=== PATIENT | male | born 1965 | race American Indian/Alaskan Native ===

== ENCOUNTER 2018-03-26 14:36 | Inpatient (IN) | payer MEDICAID ==
[2018-03-26 15:43] LABS: BASO # 0.1 K/uL (0.0-0.2); BASO % 0.7 % (0.0-2.0); EOS # 0.4 K/uL (0.0-0.7); EOS % 3.7 % (0.0-4.0); HEMOGLOBIN 14.7 g/dL (12.0-18.0); LYMPH # 2.9 K/uL (1.0-4.3); LYMPH % 28.8 % (20.0-40.0); MEAN CELL VOLUME 94.8 fL (80.0-94.0); MEAN CORPUSCULAR HEMOGLOBIN 31.9 pg (27.0-31.0); MEAN CORPUSCULAR HGB CONC 33.7 g/dL (33.0-37.0); MEAN PLATELET VOLUME 9.3 fL (7.2-11.7); MONO # 0.6 K/uL (0.0-0.8); MONO % 6.5 % (0.0-10.0); NEUT % 60.3 % (50.0-75.0); RBC 4.61 Mil/uL (4.40-5.90); RED CELL DISTRIBUTION WIDTH 14.4 % (11.5-14.5)
[2018-03-26 15:50] LABS: SQUAMOUS EPITHIAL 1 /hpf (0-5); URINE BILIRUBIN NEGATIVE (NEGATIVE); URINE BLOOD NEGATIVE (NEGATIVE); URINE CLARITY Hazy (Clear); URINE COLOR Amber (YELLOW); URINE GLUCOSE (UA) NORMAL (Normal); URINE LEUKOCYTE ESTERASE NEG Leu/uL (Negative); URINE PROTEIN 1+ mg/dL (NEGATIVE)
[2018-03-26 16:02] LABS: ALB/GLOB RATIO 1.5 (1.0-2.1); ALBUMIN 4.3 g/dL (3.5-5.0); ALT/SGPT 9 U/L (21-72); AST/SGOT 24 U/L (17-59); BLOOD UREA NITROGEN 16 mg/dL (9-20); CALCIUM 9.4 mg/dl (8.6-10.4); GFR NON-AFRICAN AMERICAN > 60
[2018-03-26 16:17] LABS: BARBITURATES, UR NEGATIVE (NEGATIVE); PHENCYCLIDINE, UR NEGATIVE (NEGATIVE)
[2018-03-26 16:25] LABS: BENZODIAZEPINES, UR POSITIVE (NEGATIVE); OPIATES, UR POSITIVE (NEGATIVE)
--- NOTE | 2018-03-26 17:09 | C.PDOC ---
History Of Present Illness 52yo male, with history of polysubstance abuse, comes to ER requesting detox from heroin and xanax. Patient states he uses approximately 10-14 bags of heroin daily and occasionally uses 1-2mg of Xanax. He reports last use was earlier today. Otherwise, patient has no medical complaints. Time Seen by Provider: 03/26/18 14:42 Chief Complaint (Nursing): Substance Abuse History Per: Patient History/Exam Limitations: no limitations Onset/Duration Of Symptoms: Persistent Current Symptoms Are (Timing): Still Present Modifying Factor(s): Narcotics Associated Symptoms: denies: Suicidal Thoughts, Suicidal Plan Additional History Per: Patient Past Medical History Reviewed: Historical Data, Nursing Documentation, Vital Signs Vital Signs: Last Vital Signs Temp 98.4 F 03/26/18 14:39 Pulse 92 H 03/26/18 14:39 Resp 18 03/26/18 14:39 BP 132/84 03/26/18 14:39 Pulse Ox 98 03/26/18 14:39 LUISITO Report Viewed: Yes - Medical History PMH: No Chronic Diseases Surgical History: No Surg Hx Family History: States: No Known Family Hx - Social History Hx Alcohol Use: No Hx Substance Use: Yes - Immunization History Hx Tetanus Toxoid Vaccination: No Hx Influenza Vaccination: No Hx Pneumococcal Vaccination: No Review Of Systems Except As Marked, All Systems Reviewed And Found Negative. Constitutional: Negative for: Fever, Chills Cardiovascular: Negative for: Chest Pain Respiratory: Negative for: Shortness of Breath Gastrointestinal: Negative for: Vomiting, Abdominal Pain Neurological: Negative for: Weakness, Numbness Physical Exam - Physical Exam Appears: Non-toxic Skin: Normal Color Head: Normacephalic Eye(s): bilateral: Normal Inspection Neck: Normal ROM, Supple Chest: Symmetrical Cardiovascular: Rhythm Regular Respiratory: Normal Breath Sounds Gastrointestinal/Abdominal: Normal Exam, Soft Back: Normal Inspection Extremity: Normal ROM, No Pedal Edema Neurological/Psych: Oriented x3 ED Course And Treatment - Laboratory Results Result Diagrams: 03/26/18 15:37 03/26/18 15:37 Lab Results: Total Bilirubin 0.3 mg/dL (0.2-1.3) 03/26/18 15:37 AST 24 U/L (17-59) 03/26/18 15:37 ALT 9 U/L (21-72) L 03/26/18 15:37 Alkaline Phosphatase 74 U/L (38-126) 03/26/18 15:37 Total Protein 7.2 g/dL (6.3-8.3) 03/26/18 15:37 Albumin 4.3 g/dL (3.5-5.0) 03/26/18 15:37 Globulin 2.9 gm/dL (2.2-3.9) 03/26/18 15:37 Albumin/Globulin Ratio 1.5 (1.0-2.1) 03/26/18 15:37 Urine Color Alda (YELLOW) 03/26/18 15:37 Urine Clarity Hazy (Clear) 03/26/18 15:37 Urine pH 5.0 (5.0-8.0) 03/26/18 15:37 Ur Specific [place] 1.029 (1.003-1.030) 03/26/18 15:37 Urine Protein 1+ mg/dL (NEGATIVE) H 03/26/18 15:37 Urine Glucose (UA) Normal mg/dL (Normal) 03/26/18 15:37 Urine Ketones Negative mg/dL (NEGATIVE) 03/26/18 15:37 Urine Blood Negative (NEGATIVE) 03/26/18 15:37 Urine Nitrate Negative (NEGATIVE) 03/26/18 15:37 Urine Bilirubin Negative (NEGATIVE) 03/26/18 15:37 Urine Urobilinogen 2.0 mg/dL (0.2-1.0) 03/26/18 15:37 Ur Leukocyte Esterase Neg [place]/uL (Negative) 03/26/18 15:37 Urine WBC (Auto) 2 /hpf (0-5) 03/26/18 15:37 Urine RBC (Auto) 2 /hpf (0-3) 03/26/18 15:37 Ur Squamous Epith Cells 1 /hpf (0-5) 03/26/18 15:37 O2 Sat by Pulse Oximetry: 98 (RA) Pulse Ox Interpretation: Normal Medical Decision Making Medical Decision Makinyo male with history of heroin abuse comes for detox Plan: -- Labs -- Urinalysis 1630 Patient medically cleared 1712 Patient admitted to detox by Dr. Mike for opoid abuse disorder Disposition - Disposition Disposition: HOSPITALIZED Disposition Time: 16:10 Condition: STABLE - Clinical Impression Clinical Impression: Drug dependence - Scribe Statement The provider has reviewed the documentation as recorded by the Scribe Suzie Radha Provider Attestation: All medical record entries made by the Lyndsey were at my direction and personally dictated by me. I have reviewed the chart and agree that the record accurately reflects my personal performance of the history, physical exam, medical decision making, and the department course for this patient. I have also personally directed, reviewed, and agree with the discharge instructions and disposition.
--- NOTE | 2018-03-26 17:57 | PCM.BM ---
<Loren Hall - Last Filed: 03/26/18 17:56> Treatment Plan Problems - Problems identified on initial assessmt Defensive Coping Date Initiated: 03/26/18 Time Initiated: 17:56 Assessment reference: NA Status: Active Denial Date Initiated: 03/26/18 Time Initiated: 17:56 Assessment reference: NA Status: Active Chronic Low Self Esteem Date Initiated: 03/26/18 Time Initiated: 17:56 Assessment reference: NA Status: Active Treatment assets and liabiliti Patient Assests: ADL independent, negotiates basic needs, cognitively intact Patient Liabilities: substance abuse (Opiates, Benzo) - Milieu Protocol Maintain good personal hygiene: daily Encourage regular showers, daily Remind patient to perform daily oral care, daily Assist patient to perform ADL's Conduct patient checks and document Observation sheet: Q15 minutes Maintain personal safety: every shift Educate patient to report safety concerns to staff, every shift Monitor environment for contraband/sharps Medication safety: Monitor for expected outcome, potential side effects: every shift, Assess barriers to learning: every shift, Assess readiness for medication education: every shift <Rhonda Lanier - Last Filed: 03/29/18 13:41> - Diagnosis (1) Opioid use disorder, severe, dependence Status: Acute Interventions: 03/29/18 13:41 * Assess 7x/week regarding severity of withdrawal * Educate regarding risks, benefits, side effects and alternatives of medications * Use Motivational Interviewing for abstinence * Use CBT for relapse prevention * Medication management for withdrawal symptoms * Encourage medication assisted treatment *
[2018-03-26] MEDS ORDERED: HYDROPHOR TOP PRN (18:48)
[2018-03-26] MEDS ORDERED: Aluminum Hydroxide/Magnesium Hydroxide Susp (30 mL) PO PRN (23:55)
[2018-03-27] MEDS: Albuterol HFA 90 mcg/actuation (8 g) INH PRN (13:18)
--- NOTE | 2018-03-27 19:06 | PCM.PSYCH ---
Initial Psychiatric Evaluation - Initial Psychiatric Evaluation Type of Admission: Voluntary Legal Status: Capacity Chief Complaint (in patient's own words): I am here for my heroin and benzos use. History of Present Illness and Precipitating Events: Patient is a 52 years old, single, unemployed, -Indian male with no previous psychiatric history was admitted due to withdrawing from heroine and Anxiolytic use. Opioids: He started using heroin at 11 years of age, increased gradually up to 25 bags of heroine daily, sniffing. Last used yesterday, 12 bags. Longest period of abstinence was 2-1/2 years from [id number]. Patient has history of 2 previous detox and for rehabs. Anxiolytics: Patient started using Xanax in 1993. He was using 4-5 sticks of Xanax daily. Last used yesterday more than 2 sticks. Denied use of any other drugs including cocaine and cannabis. He smokes 1 pack of cigarettes daily, refusing nicotine patch. Patient has history of left tibial surgery. He was arrested for drug charges and was incarcerated from [id number]. He is not on probation. Patient was born in [place] and has ninth grade of education. Patient is not working for last 3 years and is supported by family. He was never and has no children. Current Medications: Active Medications Generic Name Dose Route Start Last Admin Trade Name Freq PRN Reason Stop Dose Admin Al Hydrox/Mg Hydrox/Simethicone 30 ml 03/26/18 23:55 Maalox 30 Ml PO TID PRN Indigestion / Heartburn Albuterol 1 puff 03/26/18 18:47 03/27/18 13:18 Ventolin Hfa 90 Mcg/Actuation (8 G) INH 1 puff RQ6 PRN Administration Shortness of Breath Clonidine HCl 0.1 mg 03/26/18 23:54 Catapres PO Q4 PRN COWS Score More or Equal to 5 Dicyclomine HCl 10 mg 03/26/18 23:55 Bentyl PO Q6 PRN Muscle spasm Gabapentin 300 mg 03/27/18 10:00 03/27/18 17:16 Neurontin PO Not Given TID [facility] Home Med 0 gm 03/26/18 19:15 03/26/18 19:08 Patient's Own Topical TOP 1 gm BID PRN Administration Dry skin Hydroxyzine HCl 25 mg 03/26/18 18:26 03/26/18 21:03 Atarax PO 25 mg Q6 PRN Administration Anxiety Ibuprofen 600 mg 03/26/18 23:55 Motrin Tab PO Q6 PRN Pain, moderate (4-7) Loperamide HCl 2 mg 03/26/18 23:55 Imodium PO Q8 PRN Diarrhea Methadone HCl 15 mg 03/27/18 10:00 03/27/18 09:40 Methadone PO 03/30/18 09:59 15 mg Q24H [place] Administration Taper Ondansetron HCl 4 mg 03/26/18 23:55 Zofran Tab PO Q8 PRN Nausea/Vomiting Trazodone HCl 50 mg 03/26/18 18:26 03/26/18 21:03 Desyrel PO 50 mg HS PRN Administration Insomnia Past Psychiatric History - Past Psychiatric History Previous Treatment History: Inpatient Nature of Treatment: 2 previous detox and to rehabs History of Abuse: None reported History of ETOH/Drug Use: See HPI History of Family Illness: Reported drug use runs in the family. Pertinent Medical Hx (Current Medical&Sleep Prob, Allergies): Allergies Allergy/AdvReac Type Severity Reaction Status Date / Time No Known Allergies Allergy Verified 03/26/18 14:42 Albuterol HFA [Ventolin HFA 90 mcg/actuation (8 g)] 1 puff IH Q6 PRN 03/26/18 Ointment Base [Hydrophor Oint] 1 TOP BID PRN 03/26/18 Asthma Review of Systems - Psychiatric Psychiatric: As Per HPI, Anxiety Mental Status Examination - Personal Presentation Personal Presentation: Looks stated age - Affect Affect: Other (Appropriate) - Motor Activity Motor Activity: Calm - Reliability in Providing Information Reliability in Providing Information: Good - Speech Speech: Organized - Mood Mood: Anxious - Formal Thought Process Formal Thought Process: No Impairment - Hallucinations/Delusions Hallucinations: Other (None reported) Delusions: Other - Obsessions/Compulsions Obsessions: None Compulsions: None - Cognitive Functions Orientation: Person, Place, Situation, Time Sensorium: Alert Attention/Concentration: Attentive Abstract Thinking: [place] Estimate of Intelligence: Average Judgement: Intact, as evidence by: Insight regarding need for hospitalization Memory: Recent intact, as evidence by: Ability to recall events of the day, Remote intact, as evidenced by: Ability to recall historical events - Risk Risk: Withdrawal, Diminished functioning - Strength & Assets Inventory Strength & Assets Inventory: Family support, Cooperative - Limitations Limitations: Living alone DSM 5 DX - DSM 5 DSM 5 Diagnosis: opiate withdrawal Opioid use disorder severe Anxiolytic withdrawal Anxiolytic use disorder severe - Recommended/Plan of Treatment Treatment Recommendations and Plan of Treatment: Patient education. Supportive therapy. CBT for relapse prevention. DC for abstinence. We will start methadone taper for opioid withdrawal symptoms. Other PRN medications. Patient wants to go to [facility] short-term care. Projected ELOS: 4-5 days Discharge Plan and Discharge Criteria: No or minimal withdrawal symptoms - Smoking Cessation Smoking Cessation Initiated: No Reason for not providing: Patient refused
--- NOTE | 2018-03-29 13:41 | PCM.PYCHPN ---
Psychiatric Progress Note - Psychiatric Progress Note Patient seen today, length of contact: 18 min Patient Chief Complaint: "Not good" Problems Identified/Issues Discussed: The pt is seen, chart reviewed, case discussed with staff. The pt is compliant with medications and reports no side-effects. Symptoms are improving but needs more time to stabilize. Pt attends groups and activities. Support given, psycho-education provided. After care discussed. Medication Change: Yes (detox changes daily) Medical Record Reviewed: Yes Mental Status Examination - Cognitive Function Orientation: Person, Place, Situation, Time Memory: Intact Attention: WNL Concentration: Poor Association: WNL Fund of Knowledge: WNL - Mood Mood: Depressed, Anxious - Affect Affect: Constricted - Speech Speech: Appropriate - Formal Thought Process Formal Thought Process: No Impairment - Suicidal Ideation Suicidal Ideation: No - Homicidal Ideation Homicidal Ideation: No Goal/Treatment Plan - Goal/Treatment Plan Need for Continued Stay: Discharge may exacerbated symptoms, Severe functional impairment Progress Toward Problem(s) and Goals/Treatment Plan: Continue medications Support and psychoeducation daily Attend groups and activities daily After care planning by counselors MAT discussed
[2018-03-29] MEDS: Albuterol HFA 90 mcg/actuation (8 g) INH PRN (15:47)
--- NOTE | 2018-03-30 11:35 | PCM.PYCHPN ---
Psychiatric Progress Note - Psychiatric Progress Note Patient seen today, length of contact: 16 min Patient Chief Complaint: "I'm a little better" Problems Identified/Issues Discussed: The pt is seen, chart reviewed, case discussed with staff. Support and psychoeducation given, CBT and NV used briefly No new symptoms reported, improving slowly and needs more time No SEs from medications, risks discussed. After care discussed Medication Change: Yes (detox changes daily) Medical Record Reviewed: Yes Mental Status Examination - Cognitive Function Orientation: Person, Place, Situation, Time Memory: Intact Attention: WNL Concentration: Poor Association: WNL Fund of Knowledge: WNL - Mood Mood: Depressed, Anxious - Affect Affect: Constricted - Speech Speech: Appropriate - Formal Thought Process Formal Thought Process: No Impairment - Suicidal Ideation Suicidal Ideation: No - Homicidal Ideation Homicidal Ideation: No Goal/Treatment Plan - Goal/Treatment Plan Need for Continued Stay: Discharge may exacerbated symptoms, Severe functional impairment Progress Toward Problem(s) and Goals/Treatment Plan: Continue medications Support and psychoeducation daily Attend groups and activities daily After care planning by counselors MAT discussed
[2018-03-30] MEDS: Multiple Vitamins Tab PO SCH (12:03)
[2018-03-30] MEDS: Albuterol HFA 90 mcg/actuation (8 g) INH PRN (15:57)
--- NOTE | 2018-03-30 16:22 | RAD ---
Date of service: 03/30/2018 HISTORY: rehab admission COMPARISON: No prior. TECHNIQUE: Chest PA and lateral FINDINGS: LUNGS: No active pulmonary disease. PLEURA: No significant pleural effusion identified. No pneumothorax apparent. CARDIOVASCULAR: No aortic atherosclerotic calcification present. Normal cardiac size. No pulmonary vascular congestion. OSSEOUS STRUCTURES: No significant abnormalities. VISUALIZED UPPER ABDOMEN: Normal. OTHER FINDINGS: None. IMPRESSION: No active disease.
[2018-03-31] MEDS: Multiple Vitamins Tab PO SCH (10:19)
--- NOTE | 2018-03-31 15:53 | PCM.PYCHPN ---
Psychiatric Progress Note - Psychiatric Progress Note Patient seen today, length of contact: 18 min Patient Chief Complaint: "I'm sick! I threw up couple of times" Problems Identified/Issues Discussed: The pt is seen, chart reviewed, case discussed with staff. The pt is compliant with medications and reports no side-effects. Symptoms are improving but needs more time to stabilize. He may have been d/c'ed today but he developed more sxs, COWS>9 Will add more methaodne Pt attends groups and activities. Support given, psycho-education provided. After care discussed. Insisting on [facility] but they don't respond back yet Medication Change: Yes (detox changes daily) Medical Record Reviewed: Yes Mental Status Examination - Cognitive Function Orientation: Person, Place, Situation, Time Memory: Intact Attention: Poor Concentration: Poor Association: WNL Fund of Knowledge: WNL - Mood Mood: Depressed, Anxious - Affect Affect: Constricted - Speech Speech: Appropriate - Formal Thought Process Formal Thought Process: No Impairment - Suicidal Ideation Suicidal Ideation: No - Homicidal Ideation Homicidal Ideation: No Goal/Treatment Plan - Goal/Treatment Plan Need for Continued Stay: Discharge may exacerbated symptoms, Severe functional impairment Progress Toward Problem(s) and Goals/Treatment Plan: Continue medications - 3 x 5mg methadone added Support and psychoeducation daily Attend groups and activities daily After care planning by counselors MAT discussed - refused Either [facility] or some other short term then IOP Estimated Date of D/C: 04/01/18 If changed, why: Still withdrawing
[2018-04-01 06:12] VITALS: RESP 18
--- NOTE | 2018-04-01 08:47 | PCM.PYCHDC ---
Mental Status Examination - Mental Status Examination Orientation: Person Discharge Summary - Discharge Note Psychiatric History (includes Medical, Family, Personal Hx): 2 previous detox and to rehabs Consultations:: List each consultation separately and include: 1. Reason for request. 2. Findings. 3. Follow-up Summary of Hospital Course include:: 1. Description of specific treatment plan utilized for patients during their course of treatmen. 2. Summarize the time- course for resolution of acute symptoms and/or regressed behaviors. 3. Describe issues identified and worked on during hospitalization. 4. Describe medication utilized. 5. Describe medical problems identified and treated. 6. Reassessment of suicide risk Summary of Hospital Course: He went to [facility] but he was fixated on [facility] b/c a "friend" promised him a bed. (?) They did not have beds. - Diagnosis (1) Opioid use disorder, severe, dependence Current Visit: Yes Status: Acute - Final Diagnosis (DSM 5) Condition upon Discharge: STABLE Disposition: HOME/ ROUTINE Follow-up Treatment Plan: Continue medications - 3 x 5mg methadone added Support and psychoeducation daily Attend groups and activities daily After care planning by counselors MAT discussed - refused Either [facility] or some other short term then IOP Prescriptions/Medication Reconciliation: Gabapentin [Neurontin] 300 mg PO TID #90 cap Mirtazapine [Remeron] 30 mg PO HS #30 tab traZODone [Desyrel] 100 mg PO HS PRN #30 tab PRN Reason: Insomnia
[2018-04-01] MEDS: Multiple Vitamins Tab PO SCH (09:11)
[2018-04-01 10:28] VITALS: BP 145/82; PULSE 92; TEMP 98.1; O2SAT 98
== END 2018-04-01 11:30 | disposition home or self-care (01) | DRG 745 ==
LOC: C.ER 14:36 → C.7D 17:12
PROC: HZ2ZZZZ Detoxification Services for Substance Abuse Treatment (ICD-10-PCS; principal; 2018-03-26)
PROC: HZ59ZZZ Individual Psychotherapy for Substance Abuse Treatment, Supportive (ICD-10-PCS; 2018-03-26)
PROC: HZ46ZZZ Group Counseling for Substance Abuse Treatment, Psychoeducation (ICD-10-PCS; 2018-03-26)
DX: F11.23 Opioid dependence with withdrawal (principal); F13.239 Sedative, hypnotic or anxiolytic dependence with withdrawal, unspecified; F17.210 Nicotine dependence, cigarettes, uncomplicated